=== PATIENT | male | born 1970 | race Caucasian/White ===

== ENCOUNTER 2020-03-17 17:48 | Emergency (ER) | payer SELFPAY ==
[~2020-03-17] VITALS: Ht 175.3 cm; Wt 145.1 kg
[2020-03-17] MEDS ORDERED: ONDANSETRON HCL INJ 2MG/ML 2ML 2 MG/ML VIAL IV STA ×2 (17:59→20:08)
[2020-03-17] MEDS ORDERED: NALOXONE HCL 2MG/2 ML SYRINGE IV ONE ×3 (18:00→20:00)
[2020-03-17] MEDS ORDERED: ASPIRIN 81 MG CHEW TAB PO ONE (18:00)
[2020-03-17] MEDS ORDERED: DEXTROSE 50% SYRINGE 50 ML IV ONE (18:11)
[2020-03-17] MEDS ORDERED: DEXTROSE 50% SYRINGE 50 ML IV STA (18:25)
[2020-03-17 18:26] LABS: BASOPHILS # (AUTO) 0.1 (0.0-0.1); BASOPHILS % 0.7 % (0.0-1.0); EOSINOPHILS % 0.3 % (0.0-6.0); HEMATOCRIT 43.6 % (38.2-49.6); HEMOGLOBIN 14.1 g/dL (14.0-18.0); LYMPHOCYTES # (AUTO) 1.8 (1.0-3.2); MEAN CORPUSCULAR HEMOGLOBIN 31.6 pg (28-32); MEAN CORPUSCULAR HGB CONC 32.3 g/dL (31-35); MEAN CORPUSCULAR VOLUME 97.8 fL (81-99); MONOCYTES # (AUTO) 0.9 (0.2-0.8); MONOCYTES % 7.2 % (4.4-11.3); NEUTROPHILS # (AUTO) 9.1 (2.1-6.9); NEUTROPHILS % 76.4 % (38.7-80.0); PLATELET COUNT 216 x10e3/uL (140-360); RED BLOOD COUNT 4.46 x10e6/uL (4.3-5.7); RED CELL DISTRIBUTION WIDTH 16.3 % (11.7-14.4)
[2020-03-17 18:45] LABS: ANION GAP 27.6 mmol/L (8-16); CALCIUM 9.1 mg/dL (8.4-10.2); CREATININE, SERUM 3.34 mg/dL (0.72-1.25); POTASSIUM 4.6 mmol/L (3.5-5.1)
[2020-03-17 18:52] LABS: CREATINE KINASE MB 10.3 ng/mL (0-5.0)
[2020-03-17 18:53] LABS: B-TYPE NATRIURETIC PEPTIDE2 903.5 pg/mL (0-100)
[2020-03-17 19:02] LABS: ALBUMIN 3.9 g/dL (3.5-5.0); ALBUMIN/GLOBULIN RATIO 1.1 (0.8-2.0)
[2020-03-17] MEDS ORDERED: AZITHROMYCIN 500MG/NS 250 ML 250 ML IV ONE (20:00)
[2020-03-17] MEDS ORDERED: DEXAMETHASONE SOD PHOS 10 MG/1 ML VIAL IV ONE (20:00)
[2020-03-17] MEDS ORDERED: CEFTRIAXONE SOD 1 GM/NS 50 ML 50 ML IV ONE (20:00)
[2020-03-17] MEDS ORDERED: NALOXONE HCL 2MG/2 ML SYRINGE ONE ×3 (20:01→20:40)
[2020-03-17] MEDS ORDERED: NALOXONE HCL IV ONE ×2 (20:15→20:30)
[2020-03-17] MEDS ORDERED: SODIUM CHLORIDE 0.9% IV ONE ×2 (20:15→20:30)
[2020-03-17 21:04] LABS: AMPHETAMINES SCREEN,URINE NEGATIVE (NEGATIVE); BENZODIAZEPINES SCREEN,URINE NEGATIVE (NEGATIVE); PHENCYCLIDINE SCREEN,URINE NEGATIVE (NEGATIVE)
[2020-03-17 21:06] LABS: CLARITY,URINE HAZY (CLEAR); COLOR,URINE YELLOW (YELLOW)
[2020-03-17 21:07] LABS: KETONES,URINE NEGATIVE (NEGATIVE); LEUKOCYTE ESTERASE ,URINE NEGATIVE (NEGATIVE); NITRITE,URINE NEGATIVE (NEGATIVE); PROTEIN,URINE DIPSTICK 1+ (NEGATIVE); URINE UROBILINOGEN 0.2 mg/dL (0.2 - 1)
[2020-03-17 21:09] LABS: BACTERIA,URINE FEW /HPF; EPITHELIAL CELLS,URINE FEW /LPF; RBC,URINE 0-5 /HPF (0-5); WBC,URINE (MAN) 0-5 /HPF (0-5)
[2020-03-17 23:09] VITALS: BP 130/102
== END 2020-03-17 23:14 | disposition other institution (70) ==
LOC: ER 18:10
DX: U07.1 COVID-19 (principal); T40.2X1A Poisoning by other opioids, accidental (unintentional), initial encounter; E11.641 Type 2 diabetes mellitus with hypoglycemia with coma; R09.02 Hypoxemia; I48.20 Chronic atrial fibrillation, unspecified; E87.2 Acidosis; I12.0 Hypertensive chronic kidney disease with stage 5 chronic kidney disease or end stage renal disease; E11.22 Type 2 diabetes mellitus with diabetic chronic kidney disease; N18.6 End stage renal disease; Z99.2 Dependence on renal dialysis; E78.5 Hyperlipidemia, unspecified; F17.210 Nicotine dependence, cigarettes, uncomplicated
CPT/HCPCS: 36415; 71045; 80053; 80307; 81001; 82550; 82553; 82948; 83605; 83880; 84484; 85025; 93005; 99284; J0456; J0696; J1100; J2310; J2405; J7799; U0002